=== PATIENT | female | born 1980 | race Caucasian/White ===

== ENCOUNTER → 2022-12-09 | Outpatient (CLI) | payer BC | LOC: CANSCHCLI → MC.RAD 13:04 | DX: Z12.31 Encounter for screening mammogram for malignant neoplasm of breast (principal) ==

== ENCOUNTER 2023-12-09 14:30 | Emergency (ER) | payer BC ==
[~2023-12-09] VITALS: Ht 152.4 cm; Wt 88.6 kg
[2023-12-09 14:33] VITALS: TEMP 97.9
[2023-12-09 15:55] VITALS: BP 115/79; PULSE 70
== END 2023-12-09 15:55 | disposition home or self-care (01) ==
LOC: COL.ER 14:30
DX: S50.02XA Contusion of left elbow, initial encounter (principal); W07.XXXA Fall from chair, initial encounter